=== PATIENT | female | born 1935 | race Caucasian/White ===

== ENCOUNTER 2018-11-08 12:11 | Observation (INO) | payer MEDICARE ==
--- NOTE | 2018-11-08 13:56 | PDOC.FPRHP ---
- History of Present Illness Chief Complaint: Chest Pain History of Present Illness: Ms Sanon is an 83yo female with pmh of CAD s/p 2 stents placed in 2010 at [facility] , controlled DM, HTN, HLD presenting with chest pain. Reports Monday she had chest pressure in the evening while sitting. [place] like something was stuck in her throat, "pressure." Denied diaphoresis, SOB, exertional pain or nausea but she did have one episode of vomiting. Vomiting did not relieve symptoms but she went to sleep and when she woke up symptoms had resolved. She had return of symptoms of throat pressure last night that worsened this morning which is why she presented to [place] ED. She is currently CP free. With her past DE she had back pain. Has not followed up with public health nutritionist since [address] Fischer for heart cath. Reports diabetes is well controlled BG 80 this AM. PCP: Dr Knowles ED Course: ASA. Trop Neg. EKG unchanged from prior with no ST segment changes - Allergies/Adverse Reactions Allergies Allergy/AdvReac Type Severity Reaction Status Date / Time No Known Allergies Allergy Verified 01/01/13 12:57 - Home Medications Medication Instructions Recorded Confirmed Type Amlodipine [Norvasc] 10 mg PO QPM 01/01/13 11/08/18 History Levothyroxine Sodium [Synthroid] 100 mcg PO DAILY 01/01/13 11/08/18 History Metoprolol Succinate [Toprol XL] 50 mg PO QPM 11/08/18 11/08/18 History hydrALAZINE [Apresoline] 50 mg PO BID 11/08/18 11/08/18 History - History PMHx: DE s/p 2 stents 2010 at [facility], controlled DMII, Hypothyroidism, HTN, HLD PSHx: pericardiocentesis?, Appendectomy, hysterectomy FHx: CAD Social: Denies current or prior tobacco, alcohol or drug use - Review of Systems General: reports: weight/appetite/sleep changes (wt loss since husbands 2 yrs ago). denies: fever/chills Eyes: denies: eye pain, vision changes ENT: denies: nasal congestion, rhinorrhea Respiratory: denies: cough, congestion, shortness of breath, exercise intolerance Cardiovascular: reports: chest pain. denies: palpitation, edema, orthopnea Gastrointestinal: reports: vomiting. denies: nausea, diarrhea, abdominal pain Genitourinary: denies: dysuria, other (hematuria) Skin: denies: rashes, lesions Musculoskeletal: denies: pain, swelling Neurological: reports: weakness, other (dizziness) - Vital signs BP: 155/89 HR: 62 RR: 15 Tmax: 98.7 Pox: 95% on RA Wt: 56kg - Physical Exam Constitutional: NAD, awake, alert and oriented, well developed HEENT: normocephalic and atraumatic, conjunctiva clear, no scleral icterus, MMM , oropharynx clear Neck: supple, trachea midline, no thyromegaly, no bruits Heart: RRR, pulses present Lungs: CTAB, no respiratory distress, good air movement Abdomen: soft, non-tender, bowel sounds present Musculoskeletal: normal structure, normal tone Neurological: no focal deficit Skin: no rash/lesions, good turgor, capillary refill <2 seconds Heme/Lymphatic: no unusual bruising or bleeding Psychiatric: normal mood and affect, good judgment and insight, intact recent and remote memory FMR H&P: Results - Labs Result Diagrams: 11/09/18 04:26 11/09/18 04:26 - EKG Interpretation EKG: normal sinus rhythm, Rate (beats per minute): 62, with premature atrial complexes, Interpretation:, Conduction with, incomplete right bundle branch block, T waves normal, [place], left, Other findings include:, Nonspecific ST abnormality. Moderate voltage criteria for LVH, may be normal variant. Interpretation: Sinus arrhythmia with likely 1st degree AV block, unchanged from prior EKG - Radiology Interpretation Chest x-ray Status: report reviewed by me Additional comment: No acute abnormalities FMR H&P: A/P - Problem List (1) Atypical chest pain Current Visit: Yes Status: Acute Code(s): R07.89 - OTHER CHEST PAIN (2) HTN (hypertension) Current Visit: Yes Status: Acute Code(s): I10 - ESSENTIAL (PRIMARY) HYPERTENSION (3) HLD (hyperlipidemia) Current Visit: Yes Status: Acute Code(s): E78.5 - HYPERLIPIDEMIA, UNSPECIFIED (4) Hx of myocardial infarction Current Visit: Yes Status: Acute Code(s): I25.2 - OLD MYOCARDIAL INFARCTION (5) DMII (diabetes mellitus, type 2) Current Visit: Yes Status: Acute - Plan Ms Sanon is an 83yo female with pmh of CAD s/p 2 stents placed in 2010 at [facility] , controlled DM, HTN, HLD presenting with atypical chest pain. Atypical Chest Pain - HEART score: 5 - Trop neg. EKG no ST segment changes - Hx of DE 2010 s/p 2 stents - Continue to trend trops - Ordered A1c, TSH - Admit to tele - NPO at midnight for stress test tomorrow Thrombocytopenia - Appears to be chronic pt with plts 113 in 2012 - Will continue to monitor with daily CBC Mild Transaminitis - 36 - Will recheck in AM DM - Will check A1c, sounds well controlled with diet - Accucheck q12hrs until A1c results - SSI, hypoglycemic protocol HTN - Continue home meds HLD - Continue home meds Hypothyroidism - Continue home meds - Ordered TSH Hx of DE s/p stents - Manage as above Likely depression - Pt with large wt loss, poor appetite, tearful since 2 years ago - Follow up outpt Code Status: DNR DVT ppx: SCDs PCP: Dr Knowles FMR H&P: Upper Level - Pertinent history 83 year old female with PMH DE with stent placement x2, DM type II well controlled, HLD, and HTN presents with N/V and chest fullness since Monday. Patient states N/V was unprovoked. It was not preceded by eating. Patient states that the chest fullness started shortly after the episode of NBNB emesis on Monday afternoon. She decided she would lay down and felt better upon waking. The same sort of chest fullness and nausea occurred intermittently over the course of the last few days. Patient denies shortness of breath, diaphoresis , or exertional chest pain. She states the chest fullness does feel similar to what it did in the past when she had DE with 2 stents placed. Patient denies orthopnea. - Pertinent findings General: Alert and oriented x3. NAD. HEENT: PERRL, head normocephalic Card: Irregular rhythm, No audible murmurs Resp: CTA b/l, no acute respiratory distress Ext: No edema Neuro: No focal deficits appreciated - Plan Date/Time: 11/08/18 1355 IMirna, have evaluated this patient and agree with findings/plan as outlined by campus recruiting intern resident. Pertinent changes/additions are listed here. Atypical chest pain - Chest fullness, associated with N/V - No chest pain on evaluation - Hx of DE with stents, HLD, HTN, DM - Heart score 5 - Plan for cardiolite stress test in AM - Will hold any BB's - TSH, HgA1c pending - Differential includes GERD, Diffuse esophageal spasm - Consider PPI for recurrent chest pain - Nitro PRN - ASA daily, statin - NPO at midnight for stress test - EKG with no ST elevation or depression; findings consistent with prior EKG - Trop neg, continue to trend HTN - Continue home meds - Hold BB for stress test HLD - Continue home medication DM type II - Per patient, well controlled - Continue home medications - Will recheck HgA1c - SSI - Hyperglycemia protocol CAD s/p stents - Will work up chest pain - Continue home medications Possible Depression - Verify home meds, if pt not on medication may be candidate Thrombocytopenia - Stable from prior admissions - Continue to monitor Transaminitis - Mild, trend Code: Full DVT PPx: SCD's Dispo: Obs on telemetry. Plan for stress test in AM. Addendum - Attending - Attending Attestation Date/Time: 11/09/18 5720 I personally evaluated the patient and discussed the management with Dr. Barrera yesterday at time of admission. I agree with the History, Examination, Assessment and Plan documented above with any addition or exceptions noted below.
[2018-11-08] MEDS ORDERED: Acetaminophen 325 MG TAB PO PRN (15:39)
[2018-11-08] MEDS ORDERED: Ondansetron ODT 4 MG TAB SL PRN (15:39)
[2018-11-08] MEDS ORDERED: Ondansetron PF 4 MG/2 ML Vial IVP PRN (15:39)
[2018-11-08 16:33] LABS: Troponin I 0.013 ng/mL (< 0.028)
[2018-11-08 16:59] VITALS: BMI 24.2
[2018-11-08] MEDS ORDERED: Dextrose 5% in Water 1,000 ML IV PRN (17:10)
[2018-11-08] MEDS ORDERED: Dextrose 50% Abboject 50 ML SYRINGE SLOW IVP PRN (17:10)
[2018-11-08] MEDS ORDERED: Nitroglycerin 0.4 MG TAB (25 Tab Bottle) SL PRN (17:10)
[2018-11-08 18:06] LABS: Hemoglobin A1c 5.7 % (4.0-6.0)
[2018-11-08] MEDS ORDERED: Amlodipine 10 MG TAB PO SCH (21:00)
[2018-11-08] MEDS: hydrALAZINE 25 MG TAB PO SCH (21:00)
[2018-11-09 05:10] LABS: #Eosinphils 0.2 thou/uL (0.0-0.7); #Lymphocytes 1.4 thou/uL (1.20-3.40); #Monocytes 0.5 thou/uL (0.11-0.59); #Neutrophils 3.4 thou/uL (1.40-6.50); %Basophils 0.5 % (0.0-1.0); %Eosinophils 4.1 % (0.0-10.0); %Monocytes 9.1 % (0.0-10.0); %Neutrophils 61.3 % (42.0-75.0); Hemoglobin 13.6 g/dL (12.0-16.0); Mean Corpuscular HGB CONC 33.9 g/dL (32.0-36.0); Mean Corpuscular Volume 91.5 fL (78.0-98.0); Mean Platelet Volume 7.8 fL (7.4-10.4); Platelet Count 112 thou/uL (130-400); RBC Distribution Width 11.7 % (11.5-14.5); Red Blood Cell (RBC) Count 4.37 mill/uL (4.20-5.40); White Blood Cell (WBC) Count 5.5 thou/uL (4.8-10.8)
[2018-11-09 05:30] LABS: ALT (SGPT) 17 U/L (8-55); AST (SGOT) 24 U/L (5-34); Albumin 3.8 g/dL (3.4-4.8); Alkaline Phosphatase 69 U/L (40-150); Anion Gap 12 mmol/L (10-20); BUN (Urea Nitrogen) 15 mg/dL (9.8-20.1); Bilirubin, Total 0.6 mg/dL (0.2-1.2); Calc. Creatinine Clearance 50 mL/min (70-130); Calcium 9.4 mg/dL (7.8-10.44); Carbon Dioxide 25 mmol/L (23-31); Cardiac Risk 3.2 (Less than 4.5); Chloride 107 mmol/L (98-107); Cholesterol 144 mg/dl (< 200 Desired); Estimated GFR-MDRD 70; Globulin 2.9 g/dL (2.4-3.5); Glucose 120 mg/dL (83-110); HDL Cholesterol 45 mg/dL (>60 Neg Risk); LDL Cholesterol, Calculated 75 mg/dL; Potassium 3.9 mmol/L (3.5-5.1); Protein, Total 6.7 g/dL (6.0-8.3); Sodium 140 mmol/L (136-145); Triglycerides 118 mg/dL (Less than 150)
[2018-11-09] MEDS ORDERED: Levothyroxine Sodium 100 MCG TAB PO SCH (06:00)
--- NOTE | 2018-11-09 06:14 | PDOC.FM ---
- Subjective Subjective: No overnight events. Denies chest pain but reports nausea and the feeling like food is coming up her throat. Denies shortness of breath, palpitations. - Objective MAR Reviewed: Yes Vital Signs & Weight: Vital Signs (12 hours) Temp Pulse Resp BP Pulse Ox 11/09/18 04:44 98.1 F 66 15 144/65 H 93 L 11/08/18 21:00 67 11/08/18 19:28 97.5 F L 67 15 158/68 H 95 Weight Weight 58.151 kg I&O: 11/07/18 11/08/18 11/09/18 06:59 06:59 06:59 Intake Total 340 Balance 340 Result Diagrams: 11/09/18 04:26 11/09/18 04:26 Phys Exam - Physical Examination Constitutional: NAD HEENT: moist MMs Neck: supple Respiratory: no wheezing, clear to auscultation bilateral Cardiovascular: RRR, no significant murmur Gastrointestinal: soft, positive bowel sounds Musculoskeletal: no edema Neurological: moves all 4 limbs Psychiatric: normal affect, A&O x 3 Skin: no rash Dx/Plan (1) Atypical chest pain Code(s): R07.89 - OTHER CHEST PAIN Status: Acute (2) HTN (hypertension) Code(s): I10 - ESSENTIAL (PRIMARY) HYPERTENSION Status: Acute (3) HLD (hyperlipidemia) Code(s): E78.5 - HYPERLIPIDEMIA, UNSPECIFIED Status: Acute (4) Hx of myocardial infarction Code(s): I25.2 - OLD MYOCARDIAL INFARCTION Status: Acute (5) DMII (diabetes mellitus, type 2) Status: Acute - Plan Plan: Ms Sanon is an 83yo female with pmh of CAD s/p 2 stents placed in 2010 at [facility] , controlled DM, HTN, HLD presenting with atypical chest pain. Atypical Chest Pain - HEART score: 5 - Trop neg x2. EKG no ST segment changes - Hx of CA 2010 s/p 2 stents - NPO for stress Thrombocytopenia - Appears to be chronic pt with plts 113 in 2012 - Will continue to monitor with daily CBC Mild Transaminitis DM - A1c: 5.7 - SSI, hypoglycemic protocol HTN - Continue home meds HLD - Continue home meds Hypothyroidism - Continue home meds Hx of CA s/p stents - Manage as above Likely depression - Pt with large wt loss, poor appetite, tearful since 2 years ago - Follow up outpt Code Status: DNR DVT ppx: SCDs PCP: Dr Knowles Addendum - Attending - Attending Attestation Date/Time: 11/09/18 5448 I personally evaluated the patient and discussed the management with Dr. Barrera. I agree with the History, Examination, Assessment and Plan documented above with any addition or exceptions noted below. The patient is feeling better. She has been for stress test and results are pending. If they are negative, we will d/c home.
[2018-11-09] MEDS ORDERED: Famotidine 20 MG TAB PO SCH (09:00)
[2018-11-09] MEDS ORDERED: Aspirin 81 mg Enteric Coated Tablet PO SCH (09:00)
[2018-11-09] MEDS: hydrALAZINE 25 MG TAB PO SCH (10:51)
--- NOTE | 2018-11-09 10:56 | NM ---
NUCLEAR MEDICINE CARDIAC MYOCARDIAL PERFUSION SPECT EJECTION FRACTION STUDY WALL MOTION CINE: DATE: 11/09/2018 HISTORY: 83-year-old female with coronary artery disease, myocardial infarction previously, diabetes mellitus, and hypertension, presents with acute chest pain. TECHNIQUE: Number of days:1 Rest study: Technetium 99m-sestamibi (Cardiolite) dose:11.0 mCi Pharmacologic stress: Adenosine dose:32.5 mg Stress study: Technetium 99m-sestamibi (Cardiolite) dose:33.0 mCi FINDINGS: Cardiac (myocardial perfusion) SPECT There are no fixed or reversible myocardial perfusion defects. Ejection fraction study Left ventricular EF = 74% Wall motion cine Mildly hypokinetic septum. Normal systolic mural thickening. Rest of left ventricle moves normally. IMPRESSION: No evidence of reversible ischemia.
[2018-11-09 11:55] VITALS: BP 152/69; TEMP 98.3
[2018-11-09] MEDS ORDERED: ADENOSINE 60 MG/20 ML VIAL ONE (15:49)
--- NOTE | 2018-11-12 08:51 | DIS ---
DATE OF ADMISSION: 11/08/2018 DATE OF DISCHARGE: 11/09/2018 RESIDENT: Amy Barrera MD, PGY-1. ADMITTING ATTENDING: Anurag Sanchez MD DISCHARGE ATTENDING: Domonique Knowles MD CONSULTS: None. PROCEDURE: Nuclear stress test, no evidence of reversible ischemia. PRIMARY DIAGNOSIS: Atypical chest pain. SECONDARY DIAGNOSES: 1. Thrombocytopenia. 2. Mild transaminitis. 3. Diabetes. 4. Hypertension. 5. Hyperlipidemia. 6. Hypothyroidism. 7. History of myocardial infarction, status post stents. 8. Likely depression. DISCHARGE MEDICATIONS: 1. Protonix 40 mg daily (new). 2. Amlodipine 10 mg at bedtime. 3. Hydralazine 50 mg b.i.d. 4. Synthroid 100 mcg daily. 5. Metoprolol succinate 50 mg at bedtime. HISTORY OF PRESENT ILLNESS/HOSPITAL COURSE: Ms. Sanon is an 83-year-old female with past medical history of coronary artery disease status post two stents placed in 2010 at [facility], controlled diabetes, hypertension, hyperlipidemia, presenting with chest pain. Initially, she had chest pain earlier that week that felt like something was stuck in her throat and pressure with one episode of vomiting that did not relieve symptoms, that resolved after sleeping that night. When we saw her, she was not currently having the chest pain but it had recurred that morning, which prompted her visit. In the [place] [facility], she received aspirin and was transferred to [facility], where troponins were negative x3. EKG was unchanged from prior with no ST-segment changes. It did show sinus arrhythmia with likely first-degree AV block. The last time she saw a billing clerk was in 2012. She saw Dr. Fischer for cast. Vitals at admission were within normal limits. Exam was unremarkable and chest x-ray was normal. The patient had a Heart score of 5. She underwent stress testing that showed no reversible ischemia. She does have a history of type 2 diabetes, however, A1c was checked and it was 5.7. Labs were notable for thrombocytopenia, however, this appears to be chronic as patient's platelets in 2012 were 113. She did have a mild transaminitis that resolved. The patient's chronic medical conditions of hypertension, hyperlipidemia, and hypothyroidism were managed with home medications. There is some concern for depression. During H and P, the patient became tearful when speaking of her late , who passed 2 years ago. She does report poor appetite and large amount of weight loss since this time. This was discussed with Dr. Knowles, patient's PCP, and recommended outpatient followup or treatment. DISPOSITION: Stable. DISCHARGE INSTRUCTIONS: 1. Locations: Home. 2. Diet: Heart healthy, carb consistent. 3. Activity: No restrictions. 4. Followup: Follow up with Dr. Knowles within 3 to 7 days. Job ID: [id number]
== END 2018-11-09 14:10 | disposition home or self-care (01) ==
LOC: ERS 12:11 → ERHOLD 15:22 → 2SW 15:39
PROVIDERS: ADMIT Family Medicine; ATTEND Family Medicine
DX: R07.89 Other chest pain (principal); E11.9 Type 2 diabetes mellitus without complications; I10 Essential (primary) hypertension; E78.5 Hyperlipidemia, unspecified; I25.2 Old myocardial infarction; E03.9 Hypothyroidism, unspecified; D69.6 Thrombocytopenia, unspecified; R74.0 Nonspecific elevation of levels of transaminase and lactic acid dehydrogenase [LDH]; Z79.899 Other long term (current) drug therapy; Z95.5 Presence of coronary angioplasty implant and graft
CPT/HCPCS: 78452; 80053; 80061; 82962; 83036; 84443; 84484; 85025; 90732; 93005; 93017; 99285; A9500; G0009; G0378 ×2; 36415; 36416; 90471; J0153

== ENCOUNTER 2019-12-05 08:51 | Emergency (ER) | payer MEDICARE ==
[2019-12-05 09:44] LABS: #Eosinphils 0.3 thou/uL (0.0-0.7); #Lymphocytes 0.9 thou/uL (1.20-3.40); #Monocytes 0.8 thou/uL (0.11-0.59); #Neutrophils 6.2 thou/uL (1.40-6.50); %Basophils 0.5 % (0.0-1.0); %Eosinophils 3.6 % (0.0-10.0); %Lymphocytes 11.3 % (21.0-51.0); %Monocytes 9.8 % (0.0-10.0); %Neutrophils 74.8 % (42.0-75.0); Hemoglobin 14.7 g/dL (12.0-16.0); Mean Corpuscular HGB CONC 32.5 g/dL (32.0-36.0); Mean Corpuscular Hemoglobin 30.3 pg (27.0-31.0); Mean Corpuscular Volume 93.3 fL (78.0-98.0); Mean Platelet Volume 8.2 fL (7.4-10.4); Platelet Count 114 thou/uL (130-400); RBC Distribution Width 11.6 % (11.5-14.5); Red Blood Cell (RBC) Count 4.85 mill/uL (4.20-5.40); White Blood Cell (WBC) Count 8.3 thou/uL (4.8-10.8)
--- NOTE | 2019-12-05 10:06 | CT ---
CT OF THE ABDOMEN AND PELVIS WITH IV CONTRAST INDICATION: Right-sided abdominal pain COMPARISON: Noncontrast CT of the abdomen and pelvis dated November 20, [address] the abdomen dated [facility] 2005 FINDINGS: ABDOMEN: Lung bases: There is a subpleural pulmonary nodule within the posterior medial right lower lobe measu ring 9 mm. There is subsegmental volume loss within both lung bases. Liver: There is cirrhotic morphology to the liver. There is a large heterogeneously enhancing mass wi thin the lateral left hepatic lobe measuring 7 x 4.6 cm. There is a linear heterogeneous enhancing lesion projecting from the left hepatic lobe into the left hepatic portal vein consistent with portal vein invasion. The main portal vein is patent. There is an additional enhancing lesion within the segment 8 of the right hepatic lobe measuring 1.4 cm suspicious for an additional hepatic malignancy on image 15 of series 2. Numerous small hypodensities are seen within the left hepatic lobe likely reflecting multifocal multifocal disease. Gallbladder: Contracted with gallstones Pancreas: Normal. Adrenal glands: Normal. Spleen: Mildly enlarged measuring 12.8 cm Kidneys and ureters: Normal. No hydronephrosis. Vasculature: There are severe vascular calcifications seen involving the visualized vasculature. Lymph nodes:There are multiple prominent lymph nodes within the upper abdomen, predominantly within t he peripancreatic, portacaval and periportal regions. One of the largest is seen within the right periportal region on image 23 series 3 measuring 3.4 cm. Additional enlarged portacaval lymph node m easures 1.9 cm on image 20 of series 3. Prominent peripancreatic lymph node measures 2.6 cm on image 21 of series 3. There are additional enlarged lymph nodes within the gastrohepatic region and u pper periaortic region. Free fluid in abdomen:Mild ascites PELVIS: Small and large bowel: Underdistended. There is scattered colonic diverticulosis. There is a mild chris unt of retained stool within the colon. There is slight accentuation of the peters involving the cecum and ascending colon which may related to underdistention; however, mild colitis is not excluded . Appendix:Not definitely seen Bladder: Normal. Rectal and perirectal soft tissues:Normal. Reproductive structures: Surgically absent Free fluid in pelvis: [id number] Lymphadenopathy pelvis: No lymphadenopathy is evident. Osseous structures: There is diffuse osteopenia. There is scattered degenerative and osteoarthritic changes. Soft tissues:Mild anasarca IMPRESSION: 1. Large heterogeneous enhancing lesion in the left hepatic lobe in a background of cirrhosis is high ly suspicious for hepatic malignancy such as hepatocellular carcinoma. There are multifocal hypodense lesions within the left hepatic lobe likely reflecting multifocal disease. There is a lesio n within segment 8 of the right hepatic lobe suspicious for an additional malignant lesion. There is hypodensity filling the left hepatic portal vein consistent with tumor invasion. There are large l ymph nodes within the upper abdomen consistent with malignant lymphadenopathy. There is a 9 mm right lower lobe pulmonary nodule suspicious for pulmonary metastatic disease. Full CT of the thorax with IV contrast is recommended to evaluate for additional pulmonary nodules. 2. Findings of portal hypertension with mild ascites 3. Slight wall thickening involving the cecum and ascending colon may be related to edema from the pa tient's cirrhosis or possibly underdistention; however, mild colitis cannot be entirely excluded.
[2019-12-05 10:07] LABS: ALT (SGPT) 32 U/L (8-55); AST (SGOT) 71 U/L (5-34); Albumin 3.8 g/dL (3.4-4.8); Alkaline Phosphatase 152 U/L (40-110); Anion Gap 13 mmol/L (10-20); BUN (Urea Nitrogen) 8 mg/dL (9.8-20.1); Bilirubin, Total 1.3 mg/dL (0.2-1.2); Calc. Creatinine Clearance 0 mL/min (70-130); Calcium 9.2 mg/dL (7.8-10.44); Carbon Dioxide 28 mmol/L (23-31); Chloride 94 mmol/L (98-107); Estimated GFR-MDRD 69; Globulin 3.3 g/dL (2.4-3.5); Glucose 245 mg/dL (83-110); Lipase 18 U/L (8-78); Potassium 3.5 mmol/L (3.5-5.1); Protein, Total 7.1 g/dL (6.0-8.3); Sodium 131 mmol/L (136-145)
[2019-12-05] MEDS ORDERED: Ondansetron PF 4 MG/2 ML Vial ONE (10:33)
[2019-12-05 10:41] LABS: Bilirubin Negative (Negative); Blood, Urine Negative (Negative); Clarity Clear (Clear); Glucose, Urine (Dipstick) Normal (Negative); Leukocyte Negative Leu/uL (Negative); Nitrite Negative (Negative); Protein, Urine (Dipstick) 10 mg/dL (Neg-Trace); Urobilinogen Normal mg/dL (Less than 2)
[2019-12-05] MEDS ORDERED: Iopamidol-370 76% 500 ML 1 ML ONE (11:21)
== END 2019-12-05 14:03 | disposition home or self-care (01) ==
LOC: ERS 08:51
DX: R19.00 Intra-abdominal and pelvic swelling, mass and lump, unspecified site (principal); I25.2 Old myocardial infarction; E11.9 Type 2 diabetes mellitus without complications; E03.9 Hypothyroidism, unspecified; I10 Essential (primary) hypertension; Z79.82 Long term (current) use of aspirin; Z79.899 Other long term (current) drug therapy
CPT/HCPCS: 36415; 74177; 80053; 81003; 83690; 85025; 96374; J2405; Q9967